=== PATIENT | female | born 1965 | race Caucasian/White ===

== ENCOUNTER 2016-05-30 14:02 | Emergency (ER) | payer OTHER ==
[2016-05-30 14:44] LABS: URINE BILIRUBIN NEGATIVE (NEGATIVE); URINE BLOOD TRACE (NEGATIVE); URINE GLUCOSE (UA) NORMAL (NORMAL); URINE KETONE NEGATIVE (NEGATIVE); URINE LEUKOCYTE ESTERASE NEGATIVE (NEGATIVE); URINE NITRATE NEGATIVE (NEGATIVE); URINE PROTEIN NEGATIVE (NEGATIVE); UROBILINOGEN NORMAL mg/dL (<1.0)
[2016-05-30 15:29] LABS: URINE BACTERIA FEW (NONE SEEN); URINE RBC RARE /[HPF] (0-2); URINE WBC RARE /[HPF] (0-5)
== END 2016-05-30 17:43 | disposition home or self-care (01) ==
LOC: ER 14:02
PROVIDERS: General Practice
DX: N75.0 Cyst of Bartholin's gland (principal); R31.9 Hematuria, unspecified; R10.31 Right lower quadrant pain; R30.0 Dysuria; R11.0 Nausea; R19.7 Diarrhea, unspecified; E66.01 Morbid (severe) obesity due to excess calories; Z86.73 Personal history of transient ischemic attack (TIA), and cerebral infarction without residual deficits; I10 Essential (primary) hypertension; Z79.899 Other long term (current) drug therapy; Z79.02 Long term (current) use of antithrombotics/antiplatelets; Z88.0 Allergy status to penicillin; Z88.2 Allergy status to sulfonamides
CPT/HCPCS: 74150; 81001; 81025; 96372; 99070; 99284-25; J8597

== ENCOUNTER 2016-08-20 14:21 | Emergency (ER) | payer OTHER | END 2016-08-20 14:28 | disposition home or self-care (01) | LOC: ER 14:21 | DX: S70.362A Insect bite (nonvenomous), left thigh, initial encounter (principal); W57.XXXA Bitten or stung by nonvenomous insect and other nonvenomous arthropods, initial encounter; I10 Essential (primary) hypertension; E78.00 Pure hypercholesterolemia, unspecified; Z90.710 Acquired absence of both cervix and uterus; Z88.0 Allergy status to penicillin; Z88.2 Allergy status to sulfonamides; Z79.899 Other long term (current) drug therapy; Z79.82 Long term (current) use of aspirin | CPT/HCPCS: 99282 ==